=== PATIENT | male | born 1960 | race Caucasian/White ===

== ENCOUNTER 2016-12-20 13:34 | Emergency (ER) | payer SELFPAY ==
[2016-12-20 14:08] VITALS: BP 142/81
[2016-12-20] MEDS ORDERED: Ibuprofen TAB* 400 MG PO ONE (14:21)
--- NOTE | 2016-12-20 14:45 | UC ---
Lower Extremity/Ankle HPI - HPI Summary HPI Summary: Here RIGHT foot pain since 1300 today from work injury. Pt states he went to lift/push pvc pipe into rack (~50 lbs) and when he went to step on RIGHT foot he heard a "crack". Pt states pain in bottom of RIGHT foot- worse w/ ambulation/ standing. Has not taken anything for pain. Works at [employer] and injury at work [ End ] - History of Current Complaint Chief Complaint: UCLowerExtremity Stated Complaint: RIGHT FOOT INJURY (WC) Time Seen by Provider: 12/20/16 14:38 Hx Obtained From: Patient Onset/Duration: Sudden Onset Aggravating Factor(s): Standing, Ambulation Alleviating Factor(s): Rest, Elevation Able to Bear Weight: No Related History: Occupational Injury - Risk Factors Gout Risk Factors: Negative DVT Risk Factors: Negative Septic Arthritis Risk Factor: Negative - Allergies/Home Medications Allergies/Adverse Reactions: Allergies Allergy/AdvReac Type Severity Reaction Status Date / Time Gabapentin Allergy Hallucinati Verified 12/20/16 14:00 ons Tramadol Allergy Shortness Verified 12/20/16 14:00 of Breath PMH/Surg Hx/FS Hx/Imm Hx Previously Healthy: Yes Other History Of: Hepatitis C - Surgical History Surgical History: None - Family History Known Family History: Positive: None - Social History Occupation: Unemployed Lives: With Family Alcohol Use: None Substance Use Type: None Smoking Status (MU): Never Smoked Tobacco - Immunization History Most Recent Influenza Vaccination: NONE 2016 Review of Systems Constitutional: Negative Skin: Negative Eyes: Negative ENT: Negative Respiratory: Negative Cardiovascular: Negative Gastrointestinal: Negative Genitourinary: Negative Motor: Negative Neurovascular: Negative Musculoskeletal: Arthralgia, Decreased ROM, Edema Neurological: Negative Psychological: Negative All Other Systems Reviewed And Are Negative: Yes Physical Exam Triage Information Reviewed: Yes Appearance: Pain Distress - moderate Vital Signs: Initial Vital Signs Temp 98 F 12/20/16 14:00 Pulse 64 12/20/16 14:00 Resp 18 12/20/16 14:00 BP 142/81 12/20/16 14:00 Pulse Ox 100 12/20/16 14:00 Vital Signs Reviewed: Yes Eye Exam: Normal ENT Exam: Normal Respiratory Exam: Normal Cardiovascular Exam: Normal Musculoskeletal: Positive: ROM Limited @ - right foot and pain to palpation of the plantar aspect of the right foot midfoot area diffusely and laterally. can move toes. peripheral pulses intact. skin normal and warm. neg homans. no break in skin. no ecchymosis noted. Neurological Exam: Normal Psychological Exam: Normal Skin Exam: Normal Lower Extremity Course/Dx - Course Course Of Treatment: Xray negative . plantar fascia sprain / tear? place in boot , crutches. Reference #: [id number] -- he declined boot and crutches at this time. - Differential Dx/Diagnosis Differential Diagnosis/HQI/PQRI: Fracture (Closed), Sprain, Strain Provider Diagnoses: Right foot pain / sprain Discharge - Discharge Plan Condition: Good Disposition: HOME Prescriptions: Hydrocodone-Acetaminophen [Hydrocodone/Acetaminophen 5-325 mg] 2 tab PO Q8HR PRN #10 tab MDD 6 PRN Reason: Pain Patient Education Materials: Foot Sprain (ED) Forms: *Work Release Referrals: Non Staff,Doctor [Primary Care Provider] - Chandrakant Saez MD [Medical Doctor] - 5 Days
[2016-12-20] MEDS ORDERED: Acetaminophen TAB* 325 MG PO ONE (14:46)
--- NOTE | 2016-12-20 15:15 | RAD ---
Indication: Right foot pain. 3 views of the right foot are reviewed. Degenerative changes of the first metatarsal sesamoid bones are noted. No fractures noted. IMPRESSION: No fractures identified. Degenerative changes between the head of the first metatarsal and sesamoids are noted.
== END 2016-12-20 15:59 | disposition home or self-care (01) ==
LOC: UCCORT 13:34
DX: S93.601A Unspecified sprain of right foot, initial encounter (principal); Z88.5 Allergy status to narcotic agent; Z86.19 Personal history of other infectious and parasitic diseases; M25.571 Pain in right ankle and joints of right foot; X50.0XXA Overexertion from strenuous movement or load, initial encounter
CPT/HCPCS: 99202; A9270-GY; G0463